=== PATIENT | female | born 1975 | race Caucasian/White ===

== ENCOUNTER 2018-02-25 16:01 | Emergency (ER) | payer OTHER ==
--- OUTSIDE RECORDS SUMMARY | 2018-02-25 16:07 | XMS REPORT | Continuity of Care Document ---
:1975 External Reference #:[id number] Author Name Yola Rosario O.D. Address [address] [place] [address] Care Team Providers Name Role Phone Todd Pennington M.D. Primary Care Physician Unavailable Payers Type Date Identification Numbers Payment Provider Subscriber Policy Number: [id number] [employer] P[employer]Pos[employer]Epo[employer]Nap [employer] Number: [id number] [address] PayID: [id number] [place] [address] Advance Directives Description No Information Available Problems Date Description Provider Status Onset: 10/03/2014 Tear film insufficiency Keke Mcclain O.D. Active Onset: 10/03/2014 Internal hordeolum Keke Mcclain O.D. Active Onset: 10/03/2014 Myopia Keke Mcclain O.D. 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 Use Occasionally consumes alcohol Tobacco Use Start: Unknown Patient has never smoked Recreational Drug Use Denies Drug Use Smoking Status Reviewed: 02/19/18 Patient has never smoked Allergies, Adverse Reactions, Alerts Description No Known Drug Allergies Medications Medication Date Status Form Strength Qnty SIG Indications Ordering Provider Vitamin D Active Tablets 400Unit Unknown 0 Calcium Active Chewtabs [id number] Unknown 0 t Vitamin B3 Active Unknown 0 Multivitamins Hx Capsules Unknown 0 - 7 OB Complete Hx Tablets 50-1.25mg Unknown 0 - 7 Miralax Hx Powder 3350NF Unknown 0 - 7 Immunizations Description No Information Available Vital Signs Description No Information Available Results Description No Information Available Procedures Date Code Description Status 02/03/2017 51822 Determination Of Refractive State Completed 02/03/2017 32658 Est Patient Comprehensive Exam Completed 01/08/2016 98436 Determination Of Refractive State Completed 01/08/2016 47842 Est Patient Comprehensive Exam Completed 10/03/2014 31076 Determination Of Refractive State Completed 10/03/2014 84042 Est Patient Comprehensive Exam Completed 10/03/2014 101 Level 1 SCL Fit/Refit Completed 09/06/2013 43836 Determination Of Refractive State Completed 09/06/2013 75345 Est Patient Comprehensive Exam Completed 09/06/2013 101 Level 1 SCL Fit/Refit Completed 07/26/2012 60902 Determination Of Refractive State Completed 07/26/2012 00234 Est Patient Comprehensive Exam Completed 07/26/2012 201 Refit - No Change In Fit Completed 07/29/2011 42702 Determination Of Refractive State Completed 07/29/2011 02156 New Patient Comprehensive Exam Completed 07/29/2011 201 Refit - No Change In Fit Completed Encounters Description No Information Available Plan of Treatment Future Appointment(s):02/22/2019 9:00 am - Yola Rosario O.D. at [facility] - Yola Rosario O.D.D31.31 Benign neoplasm of right choroidComments:Smoking can increase the risk of developing or worsening any eye related disease, as well as affect your overall health. If you are a smoker , we strongly recommend that you quit.If you are not a smoker, we strongly recommend that you do not start. You have a nevus in your right eye. This is similar to a mole on your skin. Typically this will not change, but I will monitor it.Follow up:1 Year Follow Up You can expect to have your eyes dilated at your next visit. If Dr. Rosario orders any additional testing, it may require extra time. We recommend that you bring sunglasses, as dilation drops often make you light sensitive until they wear off. We always recommend you bring someone to drive you home if you are uncomfortable driving with your eyes dilated. If you have any questions before your next visit, feel free to call our office at .[email or web address] Myopia, bilateralComments:You have Myopia, or near sightedness. I have given you a prescription for glasses.
--- OUTSIDE RECORDS SUMMARY | 2018-02-25 16:07 | XMS REPORT | Continuity of Care Document ---
:1975 External Reference #:[id number] Author Name Yola Rosario O.D. Address [address] [place] [address] Care Team Providers Name Role Phone Todd Pennington M.D. Primary Care Physician Unavailable Payers Type Date Identification Numbers Payment Provider Subscriber Policy Number: [id number] [employer] Ppo/Pos/Epo/Nap Arm[employer] Group Number: [id number] [address] PayID: [id number] [place] [address] Advance Directives Description No Information Available Problems [...] Tablets 400Unit Unknown 0 Calcium Active Chewtabs [id number] Unknown 0 t Vitamin B3 Active Unknown 0 Multivitamins Hx Capsules Unknown 0 - 7 OB Complete Hx Tablets 50-1.25mg Unknown 0 - 7 Miralax Hx Powder 3350NF Unknown 0 - 7 Immunizations Description No Information Available Vital Signs Description No Information Available Results Description No Information Available Procedures Date Code Description Status 02/03/2017 80020 Determination Of Refractive State Completed 02/03/2017 11995 Est Patient Comprehensive Exam Completed 01/08/2016 71392 Determination Of Refractive State Completed 01/08/2016 98944 Est Patient Comprehensive Exam Completed 10/03/2014 58734 Determination Of Refractive State Completed 10/03/2014 32485 Est Patient Comprehensive Exam Completed 10/03/2014 101 Level 1 SCL Fit/Refit Completed 09/06/2013 52335 Determination Of Refractive State Completed 09/06/2013 61076 Est Patient Comprehensive Exam Completed 09/06/2013 101 Level 1 SCL Fit/Refit Completed 07/26/2012 24436 Determination Of Refractive State Completed 07/26/2012 21023 Est Patient Comprehensive Exam Completed 07/26/2012 201 Refit - No Change In Fit Completed 07/29/2011 18511 Determination Of Refractive State Completed 07/29/2011 94323 New Patient Comprehensive Exam Completed 07/29/2011 201 Refit - No Change In Fit Completed Encounters Description No Information Available Plan of Treatment 02/19/2018 - Yola Rosario O.D.D31.31 Benign neoplasm of right choroidComments :Smoking can increase the risk of developing or worsening any eye related disease, as well as affect your overall health. If you are a smoker, we strongly recommend that you quit.If you [...] feel free to call our office at [phone].D04.13 Myopia, bilateralComments:You have Myopia, or near sightedness. I have given you a prescription for glasses.
--- NOTE | 2018-02-25 18:02 | UC ---
Lower Extremity/Ankle HPI - HPI Summary HPI Summary: Year old woman comes in today with a chief complaint of left foot pain. Pain started 3 days ago. She woke with the pain. The pain is in the distal foot on the dorsal asked aspect. The first step of the day is quite painful. She does have a new pair of shoes. It is more tender to palpation. Couple of days she had an episode where all the blood vessels in her feet and hands were dilated. She did not Feel like passing out at the time. No chest pain no shortness of breath. She no longer has that symptom. Today she had left hand numbness but no weakness. It lasted about an hour. The numbness stayed isolated to the left hand she had no vision or speech difficulties or facial are left leg symptoms. She did have a mild headache earlier on after she ate the headache went away. She has no calf pain no history of DVTs. - History of Current Complaint Chief Complaint: UCLowerExtremity Stated Complaint: PAIN IN LEFT FOOT Time Seen by Provider: 02/25/18 17:33 Hx Last Menstrual Period: 02/16/18 Pain Intensity: 2 - Allergies/Home Medications Allergies/Adverse Reactions: Allergies Allergy/AdvReac Type Severity Reaction Status Date / Time No Known Allergies Allergy Verified 02/25/18 16:23 Home Medications: Home Medications B12/Iodin/Mag/Zinc/Ruba/Xqrw253 [Adrenoid] 1 cap PO DAILY WITH MEAL 02/25/18 [ History Confirmed 02/25/18] PMH/Surg Hx/FS Hx/Imm Hx Previously Healthy: Yes - Surgical History Surgical History: Yes Surgery Procedure, Year, and Place: IVF - Family History Known Family History: Positive: None - Social History Alcohol Use: Weekly Substance Use Type: None Smoking Status (MU): Never Smoked Tobacco Have You Smoked in the Last Year: No - Immunization History Most Recent Influenza Vaccination: 02/27/14 Most Recent Tetanus Shot: 01/09/14 Most Recent Pneumonia Vaccination: never Review of Systems Constitutional: Negative Skin: Negative Eyes: Negative ENT: Negative Respiratory: Negative Cardiovascular: Negative Gastrointestinal: Negative Motor: Negative Neurovascular: Other - SEE HPI Musculoskeletal: Other: - SEE HPI Neurological: Other - SEE HPI Psychological: Negative Is Patient Immunocompromised?: No All Other Systems Reviewed And Are Negative: Yes Physical Exam Triage Information Reviewed: Yes Appearance: Well-Appearing, No Pain Distress, Well-Nourished Vital Signs: Initial Vital Signs Temp 98.4 F 02/25/18 16:15 Pulse 62 02/25/18 16:15 Resp 18 02/25/18 16:15 BP 117/70 02/25/18 16:15 Pulse Ox 100 02/25/18 16:15 Vital Signs Reviewed: Yes Eye Exam: Normal Eyes: Positive: Conjunctiva Clear Neck exam: Normal Neck: Positive: Supple Respiratory: Positive: Lungs clear, Normal breath sounds, No respiratory distress Cardiovascular Exam: Normal Cardiovascular: Positive: RRR Musculoskeletal: Positive: Other: - On the dorsum of the foot over the metatarsals there is mild tenderness to palpation there is no erythema. Capillary refill is normal pulses are normal. No sensation deficit. Range of motion is normal. Ankle is nontender. Neurological: Positive: Other: - No focal neurologic deficit on exam. There is no facial droop strength is 5 out of 5 throughout. There is no sensation deficit. Psychological Exam: Normal Psychological: Positive: Age Appropriate Behavior Skin Exam: Normal Lower Extremity Course/Dx - Course Course Of Treatment: We discussed getting an x-ray of the foot. Patient declined at this time. Patient is going to be seeing her primary care doctor Dr. Ospina tomorrow. I foot tendinitis is a probable cause of her foot pain. Patient had no calf tenderness or other signs of DVT. There is no evidence of any neurologic deficit on exam today. Given the numbness was just the hand and there is no weakness the transient numbness most probable cause is peripheral. The overall plan is for the patient to follow-up tomorrow with her primary care doctor Dr. Ospina. We discussed the signs and symptoms of stroke and blood clots and if she has any of the symptoms she is to go directly to the emergency department. - Differential Dx/Diagnosis Provider Diagnoses: LEFT FOOT PIAN. TRANSIENT LEFT HAND NUMBNESS Discharge - Sign-Out/Discharge Documenting (check all that apply): Patient Departure All imaging exams completed and their final reports reviewed: No Studies - Discharge Plan Condition: Stable Disposition: HOME Patient Education Materials: Foot Sprain (ED), Paresthesia (ED) Referrals: Todd Pennington MD [Primary Care Provider] - Additional Instructions: FOLLOW UP WITH YOUR DOCTOR SCHEDULED. GO TO THE EMERGENCY DEPARTMENT FOR ANY WORSENING OF YOUR CONDITION; WEAKNESS, NUMBNESS, DIFFICULTY WITH SPEECH OR VISION, CHEST PAIN, SHORTNESS OF BREATH OR QUESTIONS OR CONCERNS. - Billing Disposition and Condition Condition: STABLE Disposition: Home
[2018-02-25 18:24] VITALS: BP 124/72
== END 2018-02-25 18:24 | disposition home or self-care (01) ==
LOC: UCEAST 16:01
DX: M79.672 Pain in left foot (principal); R20.0 Anesthesia of skin
CPT/HCPCS: 99211; G0463